=== PATIENT | male | born 1935 | race Caucasian/White ===

== ENCOUNTER 2017-03-08 08:19 | Day surgery (SDC) | payer OTHER ==
[~2017-03-08] VITALS: Ht 168.9 cm; Wt 72.6 kg
[~2017-03-08 08:19] MED LIST: ADULT LOW DOSE81 M1 PO; ALLOPURINOL300 MG PO; DULERA 100 MCG/13 GM IH; FLONASE16 G1 BOTH NARES; LOSARTAN POTASS50 MG PO; MOBIC7.5 MG PO; MOTRIN600 MG PO; ONE DAILY1 EAC3 PO; OSTEO BI-FLEX1 EAC1 PO; PLAVIX75 MG PO; PROAIR HFA8.5 GM IH; PROVENTIL,200 INHALA IH; SIMVASTATIN20 M1 PO; SIMVASTATIN20 MG PO; TAMSULOSIN HCL0.4 MG PO; ULTRACET1 TABLET PO; ZESTRIL,PRINIVI20 MG PO
[2017-03-08] MEDS ORDERED: DULERA 100 MCG/13 GM IH (09:06)
[2017-03-08] MEDS ORDERED: FLEXERIL5 MG PO (09:07)
[2017-03-08] MEDS ORDERED: TRAMADOL HCL50 MG PO (09:07)
[2017-03-08] MEDS ORDERED: ULTRACET1 TABLET PO (09:08)
== END 2017-03-08 14:30 | disposition home or self-care (01) ==
LOC: CATH 08:19
DX: I25.10 Atherosclerotic heart disease of native coronary artery without angina pectoris (principal); I10 Essential (primary) hypertension; E78.5 Hyperlipidemia, unspecified; R00.1 Bradycardia, unspecified; Z86.73 Personal history of transient ischemic attack (TIA), and cerebral infarction without residual deficits; J45.909 Unspecified asthma, uncomplicated; Z79.02 Long term (current) use of antithrombotics/antiplatelets
CPT/HCPCS: C1769; C1887; J1644; J2250; J3010